=== PATIENT | female | born 1940 | race Asian ===

== ENCOUNTER 2018-05-13 09:50 | Day surgery (SDC) | payer OTHER, MEDICARE ==
[2018-05-13] MEDS ORDERED: VERAPAMIL 5 MG INJ (11:23)
[2018-05-13] MEDS ORDERED: MIDAZOLAM 1 MG/ML 2 ML INJ (11:23)
[2018-05-13] MEDS ORDERED: FENTAnyl 50 MCG/ML VIAL (11:23)
[2018-05-13] MEDS ORDERED: LIDOCAINE 2% (MDV) 20 ML INJ (11:23)
[2018-05-13] MEDS ORDERED: NITROGLYCERIN (IC) 100 MCG/ML INJ (11:23)
[2018-05-13] MEDS ORDERED: IODIXANOL LOCM 100 ML BTL (11:23)
[2018-05-13] MEDS ORDERED: HEPARIN 1000 UNITS/ML 10 ML INJ (11:23)
[2018-05-13] MEDS ORDERED: SOD CHLORIDE 0.9% 1,000 ML IV (12:38)
[2018-05-13] MEDS ORDERED: ACETAMINOPHEN 325 MG TAB PO (13:00)
[2018-05-13] MEDS ORDERED: morphine 2 MG INJ IV (13:00)
[2018-05-13] MEDS ORDERED: AL HYDROX/MG HYDROX/SIMETH 30 ML CUP PO (13:00)
[2018-05-13] MEDS ORDERED: ONDANSETRON 4 MG INJ IV (13:00)
== END 2018-05-13 18:05 ==
LOC: CCL 09:50 → SDS 09:50 → CCL 18:05
DX: I25.10 Atherosclerotic heart disease of native coronary artery without angina pectoris (principal); I10 Essential (primary) hypertension; E78.5 Hyperlipidemia, unspecified; I48.91 Unspecified atrial fibrillation; E78.00 Pure hypercholesterolemia, unspecified; Z79.82 Long term (current) use of aspirin
CPT/HCPCS: 93458